=== PATIENT | female | born 1950 | race Caucasian/White ===

== ENCOUNTER → 2023-01-14 | Day surgery (SDC) | payer MEDICARE ==
[2023-01-13 14:21] LABS: BASOPHILS % 0.5 % (0.0-1.0); EOSINOPHILS # (AUTO) 0.2 (0.0-0.4); EOSINOPHILS % 1.8 % (0.0-6.0); HEMATOCRIT 37.2 % (34.2-44.1); HEMOGLOBIN 12.8 g/dL (12.0-16.0); LYMPHOCYTES # (AUTO) 1.8 (1.0-3.2); LYMPHOCYTES % 22.5 % (18.0-39.1); MEAN CORPUSCULAR HEMOGLOBIN 31.1 pg (28-32); MEAN CORPUSCULAR HGB CONC 34.4 g/dL (31-35); MEAN CORPUSCULAR VOLUME 90.3 fL (81-99); MONOCYTES # (AUTO) 0.5 (0.2-0.8); NEUTROPHILS # (AUTO) 5.7 (2.1-6.9); PLATELET COUNT 234 x10e3/uL (140-360); RED BLOOD COUNT 4.12 x10e6/uL (3.6-5.1); RED CELL DISTRIBUTION WIDTH 13.2 % (11.7-14.4); WHITE BLOOD COUNT 8.19 x10e3/uL (4.8-10.8)
[2023-01-13 15:04] LABS: ALANINE AMINOTRANSFERASE 20 IU/L (0-55); ALBUMIN 3.9 g/dL (3.5-5.0); ALBUMIN/GLOBULIN RATIO 1.1 (0.8-2.0); ALKALINE PHOSPHATASE 102 IU/L (40-150); ANION GAP 11.9 mmol/L (8-16); BLOOD UREA NITROGEN 13 mg/dL (7-26); BUN/CREATININE RATIO 15 (6-25); CALCIUM 9.9 mg/dL (8.4-10.2); CARBON DIOXIDE 26 mmol/L (22-29); CHLORIDE 104 mmol/L (98-107); CHOL/HDL RATIO 2.9 (3.0-3.6); CHOLESTEROL 189 MD/DL (0-199); CREATININE, SERUM 0.86 mg/dL (0.57-1.11); GLUCOSE 99 mg/dL (74-118); HDL CHOLESTEROL 66 MG/DL (40-60); LDL CHOLESTEROL 92 MG/DL (60-130); POTASSIUM 3.9 mmol/L (3.5-5.1); SODIUM 138 mmol/L (136-145); TRIGLYCERIDES 154 MG/DL (0-149)
[~2023-01-14] VITALS: Ht 157.5 cm; Wt 74.8 kg
[2023-01-14] VITALS (21 sets, daily range): BP systolic 98–172; BP diastolic 50–79; PULSE 60–83; RESP 12–22; TEMP 97.1; O2SAT 93–100
[~2023-01-14] MED LIST: ALPRAZOLAM 0.5 MG TAB ONE; ASPIRIN81 MG PO; DIPHENHYDRAMINE HCL 25 MG CAP ONE; FENTANYL CITRATE/PF 100MCG/2 ML INJ ONE; HEPARIN SOD (PORCINE) 1000 UNIT/ML 30ML ONE; HEPARIN SOD/SOD CHLORIDE 2,000 ML ONE; IOPAMIDOL 370 MG/ML 100 ML INFUS..BTL INJ ONE; LIDOCAINE HCL 2% LOCAL 20 ML VIAL ONE; MIDAZOLAM HCL 2 MG/2 ML VIAL ONE; NITROGLYCERIN/D5W 200 MCG/ML 250 ML ONE; SODIUM CHLORIDE 0.9% 1000ML 1,000 ML ONE; VERAPAMIL HCL 2.5 MG/ML 2 ML VIAL ONE
== END | disposition home or self-care (01) ==
LOC: CATH LAB 06:27
PROVIDERS: ATTEND Internal Medicine Interventional Cardiology
DX: I70.213 Atherosclerosis of native arteries of extremities with intermittent claudication, bilateral legs (principal); T82.856A Stenosis of peripheral vascular stent, initial encounter; I70.8 Atherosclerosis of other arteries; I70.0 Atherosclerosis of aorta; I70.1 Atherosclerosis of renal artery; Z95.820 Peripheral vascular angioplasty status with implants and grafts; E78.2 Mixed hyperlipidemia; I20.89 Other forms of angina pectoris; Z72.0 Tobacco use; E66.9 Obesity, unspecified; Z68.30 Body mass index [BMI] 30.0-30.9, adult; Z11.52 Encounter for screening for COVID-19; Y83.8 Other surgical procedures as the cause of abnormal reaction of the patient, or of later complication, without mention of misadventure at the time of the procedure
CPT/HCPCS: 0223U; 36245; 36415; 75625; 80053; 80061; 85025; C1769 ×2; C1894; J1644; J2001; J2250; J3010; J7030; Q9967; 75716; 99152; 99153